=== PATIENT | female | born 1990 | race Caucasian/White ===

== ENCOUNTER 2022-04-21 15:01 | Emergency (ER) | payer SELFPAY ==
[2022-04-21] MEDS ORDERED: Sodium Chloride 0.9% 10 ML Syringe FLUSH PRN (16:08)
[2022-04-21] MEDS ORDERED: Iopamidol 612 MG/ML 100 ML Bottle IVPUSH ONE (17:38)
[2022-04-21] MEDS ORDERED: Sodium Chloride 0.9% 10 ML Syringe FLUSH ONE (17:38)
[2022-04-21] MEDS ORDERED: Sodium Chloride 0.9% 100 ML IV SCH (17:45)
== END 2022-04-21 18:00 | disposition home or self-care (01) ==
LOC: JD.ED 15:01
DX: M25.551 Pain in right hip (principal); M25.561 Pain in right knee; W18.40XA Slipping, tripping and stumbling without falling, unspecified, initial encounter
CPT/HCPCS: 36415; 73562; 74177; 80053; 81001; 85025; 99284; J3490; Q9967